=== PATIENT | male | born 1985 | race Caucasian/White ===

== ENCOUNTER 2016-07-25 15:37 | Emergency (ER) | payer MEDICAID ==
[~2016-07-25 15:37] MED LIST: BISA-LAX5 M1 PO; CALCIUM1 CAP; COG1 PO; DUL5 PO; FOS10 PO; FOSAMAX PO; MOM PO; TYL500 PO; VIT-GEN1 TAB; VITAMIN D1000 IU PO; [UNRECOGNIZED DRUG - CODE] PO; [UNRECOGNIZED DRUG - CODE] PO
[2016-07-25 16:58] LABS: BASOPHIL % 0.2 % (0-2); PLATELET COUNT 179 x10^3mcL (130-400); RED CELL DISTRIBUTION WIDTH 12.7 % (11.5-14.5)
[2016-07-25 17:03] LABS: CALCIUM 9.9 mg/dL (8.5-10.1); CHLORIDE SERUM 104 mmol/L (98-107); CREATININE SERUM 0.7 mg/dL (0.7-1.3); GFR1 > 60 mL/min; GLUCOSE SERUM 128 mg/dL (74-106); POTASSIUM SERUM 3.7 mmol/L (3.5-5.1); SODIUM SERUM 144 mmol/L (136-145)
[2016-07-25 17:09] LABS: ALKALINE PHOSPHATASE 59 U/L (46-116); ALT/SGPT 34 U/L (16-63); AST/SGOT 30 U/L (15-37); BILIRUBIN TOTAL 0.28 mg/dL (0.20-1.00); LIPASE 67 IU/L (73-393); TOTAL PROTEIN, SERUM 7.6 g/dL (6.4-8.2)
[2016-07-25 17:12] LABS: AMYLASE 18 U/L (25-115)
[2016-07-25 18:45] VITALS: BP 132/74
== END 2016-07-25 18:45 | disposition home or self-care (01) ==
LOC: ED 15:37
PROVIDERS: Emergency Medicine
DX: K59.00 Constipation, unspecified (principal); Z88.1 Allergy status to other antibiotic agents; Z88.2 Allergy status to sulfonamides
CPT/HCPCS: 83880; J1170; J2550

== ENCOUNTER 2018-05-13 13:06 | Emergency (ER) | payer MEDICAID ==
[~2018-05-13] VITALS: Ht 175.3 cm; Wt 40.5 kg
[2018-05-13 13:41] VITALS: BP 115/80; Ht 175.3 cm; Wt 40.5 kg
== END 2018-05-13 16:08 | disposition home or self-care (01) ==
LOC: ED 13:06
DX: J06.9 Acute upper respiratory infection, unspecified (principal); M81.0 Age-related osteoporosis without current pathological fracture; Z88.2 Allergy status to sulfonamides; Z88.1 Allergy status to other antibiotic agents; Z88.7 Allergy status to serum and vaccine; G80.9 Cerebral palsy, unspecified
CPT/HCPCS: 87804; Q0092